=== PATIENT | female | born 1935 | race Caucasian/White ===

== ENCOUNTER 2023-12-28 13:20 | Emergency (ER) | payer MEDICARE, SELFPAY ==
[2023-12-28 13:24] VITALS: BP 240/116
[2023-12-28 13:48] VITALS: BP 170/93
[2023-12-28 13:57] VITALS: BMI 34.8
[2023-12-28 14:00] VITALS: BP 180/85
--- NOTE | 2023-12-28 14:38 | ED.GENMED ---
History of Present Illness
General
Chief Complaint: Blood Pressure Problem
Source: patient
Exam Limitations: none
Time Seen by Provider: 12/28/23 14:31
Nursing documentation reviewed up to this point in time: agreed with
Travel History
Have you had any contact with someone who has COVID-19?: No
Do you have any symptoms of coronavirus? Fever > 100 degrees, chills, cough, shortness of breath, sore throat, loss of taste or smell, muscle aches, or headache?: No
History of Present Illness
History of Present Illness:
88-year-old female with history of glaucoma, edema on Lasix 20 mg daily, COPD presents stating her ankles and feet were swollen a little for the past 2 days so last night she decided to take her blood pressure and it was 208/103. She has a list of
her blood pressure readings since then, she is taking it 13 times and it has ranged from 141/95 through the 150s to 160s to 170s systolic and up to today to 208/103 at one point. Denies chest pain or trouble breathing. Denies change in vision.
Denies headache. Denies weakness or numbness in her extremities. She states 'I was just worried and wanted to get checked, has never been that high.'
Past History
Past History
ED Past Medical History: HTN and Other (gall stones, kidney stones, glaucoma)
ED Past Surgical History: Appendectomy, Tonsilectomy and Other (hemorrhoidectomy, benign tumor excision from right cheek)
Social History
Tobacco: Non-smoker
Alcohol: None
Personal:
Living: alone
Review of Systems
Review of Systems
Allergies reviewed?: Yes
All Other Systems: ROS reviewed and negative except as documented in HPI and ROS
Constitutional: Denies fever or fatigue
Respiratory: Denies trouble breathing
Cardiac: Denies chest pain
ABD/GI: Denies abdominal pain, nausea, diarrhea, constipated or anorexia
: Denies dysuria, frequency, difficulty voiding or urgency
Musculoskeletal: Reports edema (feels her ankles and feet are 'a little swollen' was worse yesterday)
Skin: Reports no symptoms
Neurological: Reports no symptoms
Phy Exam
Physical Exam
Physical Exam:
GENERAL: No acute distress. A&Ox3.
CONSTITUTIONAL: Afebrile.
EYES: clear, conjunctivae normal
ENMT: moist mucus membranes, Pharynx nl
RESPIRATORY: Regular respirations, nonlabored, lungs clear.
CARDIOVASCULAR: Regular rate and rhythm, no murmurs, no rubs.
GI: Soft, nontender, normal BS
MUSCULOSKELETAL: Moves with ease. Well perfused. No edema noted
SKIN: Warm, dry, pink
PSYCH: Normal mood and affect. Well kept, interactive and appropriate
NEUROLOGIC: Awake, alert and oriented. No focal neurological deficits
Course
Orders/Labs/Results
Orders:
Orders
12/28/23 13:27
ECG [Electrocardiogram (*1)] Urgent
Reason for Study: Hypertension, Benign
12/28/23 13:28
EKG- Treatment ONCE
12/28/23 15:06
Complete Blood Count/With Diff Urgent
Comprehensive Metabolic Panel Urgent
NT-proBNP Urgent
Abnormal Lab Results
12/28/23
15:06
MCV 80.3 L fL
(81.0-99.0)
BUN 21 H mg/dl
(7-17)
12/28/23 15:06
12/28/23 15:06
Vital Signs
Initial and Last Documented VS:
Initial Vital Signs
Temp Pulse Resp BP Pulse Ox
98.1 F 76 18 240/116 100
12/28/23 13:24 12/28/23 13:24 12/28/23 13:24 12/28/23 13:24 12/28/23 13:24
Last Documented Vital Signs
Temp Pulse Resp BP Pulse Ox
98.1 F 70 16 170/93 97
12/28/23 13:24 12/28/23 13:48 12/28/23 13:48 12/28/23 13:48 12/28/23 15:19
MDM/Problems Addressed
Differential Diagnosis Includes:
hypertensive urgency
MDM/Problems Addressed:
88-year-old female with history of glaucoma, edema on Lasix 20 mg daily, COPD presents stating her ankles and feet were swollen a little for the past 2 days so last night she decided to take her blood pressure and it was 208/103. She has a list of
her blood pressure readings since then, she is taking it 13 times and it has ranged from 141/95 through the 150s to 160s to 170s systolic and up to today to 208/103 at one point. Denies chest pain or trouble breathing. Denies change in vision.
Denies headache. Denies weakness or numbness in her extremities. She states 'I was just worried and wanted to get checked, has never been that high.'
EKG: Sinus rhythm with PACs
3:49 p.m.
CBC: normal
CMP: No clinically significant abnormality
BP 170/97
Will start pt on low dose Amlodipine 2.5 mg daily and she will f/u with pcp next week.
*EKG
EKG Intrepretation Date: 12/28/23
Interpretation: normal
Rate: normal
Rhythm: sinus
[place]: normal axis
Interval: normal interval
QRS Pattern: normal QRS
Ischemia: no ischemia
*Critical Care Note
Total Time (30-74mins, 75-104mins- exclusive of procedures): Not Applicable
ED Attending Note
-
Portions of this chart may have been created with voice recognition software.� Occasional wrong word or��sound alike� substitutions may have occurred due to the inherent limitations of voice recognition software.
Discharge Plan
Departure
Patient Disposition: Home (Routine Discharge)
Date of Disposition: 12/28/23
Time of Disposition: 15:56
Patient with high blood pressure during this ER visit?: Yes
Condition: Good
Discharge Problem:
Hypertension
Instructions: High Blood Pressure (DC)
Prescriptions:
New
amlodipine 2.5 mg tablet
2.5 mg PO DAILY Qty: 30 0RF
No Action
furosemide [Lasix] 20 mg Tablet
20 mg PO DAILY
Referrals:
Rebecca Donahue MD [Family Provider] - Call in 1-3 days for appt
Activity Restrictions/Additional Instructions:
As we discussed your lab work is normal.
I sent a prescription to your pharmacy for blood pressure medication Amlodipine 2.5 mg daily.
See your doctor next week for BP check
Interventions
Interventions:
*Risk Screen - Suicide Last Done: 12/28/23 13:24
*General Assessment Last Done: 12/28/23 13:24
*Neglect/Abuse Screening Last Done: 12/28/23 13:24
ED- Fall Risk Assessment Last Done: 12/28/23 13:48
*ED COVID-19 Vaccine History Last Done: 12/28/23 13:48
ED- Cardiac Assessment Last Done: 12/28/23 15:20
ED- Neurological Assessment Last Done: 12/28/23 15:18
ED- Pulmonary Assessment Last Done: 12/28/23 15:19
Discharge Date and Time
Print Language: GREEK
[2023-12-28 15:00] VITALS: BP 170/97
[2023-12-28 15:19] LABS: % Basophils 0.4 % (0-2); % Eosinophils 2.4 % (0-6); % Immature Granulocytes 0.3 % (0-0.5); % Lymphocytes 21.7 % (20.5-51.1); % Monocytes 9.1 % (1.7-9.3); % Neutrophils 66.1 % (42.2-75.2); Absolute Eosinophils 0.2 10^3/uL (0-0.7); Absolute Lymphocytes 1.5 10^3/uL (1.2-3.4); Absolute Monocytes 0.6 10^3/uL (0.1-0.6); Absolute Neutrophils 4.5 10^3/uL (1.4-6.5); Hematocrit 41.7 % (37.0-47.0); Mean Corp Hgb Conc. 33.6 g/dL (33.0-37.0); Mean Corpuscular Volume 80.3 fL (81.0-99.0); Mean Platelet Volume 10.1 fL (7.4-10.4); Nucleated Red Blood Cells % 0 %; Platelet Count 206 10^3/uL (130-400); Red Blood Cell Count 5.19 10^6/uL (4.20-5.40); Red Cell Dist. Width 13.5 % (11.5-14.5); White Blood Cell Count 6.7 10^3/uL (4.8-10.8)
[2023-12-28 15:26] LABS: ALT (SGPT) 21 U/L (0-35); AST (SGOT) 29 U/L (14-36); Alkaline Phosphatase 74 U/L (38-126); Blood Urea Nitrogen 21 mg/dl (7-17); Calcium 9.6 mg/dl (8.4-10.2); Carbon Dioxide 27 mmol/L (22-30); Chloride 107 mmol/L (98-107); Estimated Creatinine Clearance 61 ml/min; Glucose 97 mg/dl (70-99); Potassium 3.9 mmol/L (3.5-5.1); Sodium 140 mmol/L (135-145); Total Bilirubin 0.8 mg/dl (0.2-1.3); Total Protein 6.5 g/dl (6.3-8.2); eGFR > 60.00
[2023-12-28 15:34] LABS: NT-proBNP 257 pg/ml
[2023-12-28 16:00] VITALS: BP 193/75
[2023-12-28 16:34] VITALS: BP 193/75
== END 2023-12-28 16:35 | disposition home or self-care (01) ==
LOC: EMR 13:20
PROVIDERS: Registered Nurse; EMERGENCY PHYSICIAN Student in an Organized Health Care Education/Training Program; FAMILY PHYSICIAN Emergency Medicine
DX: I10 Essential (primary) hypertension (principal); J44.9 Chronic obstructive pulmonary disease, unspecified; Z79.899 Other long term (current) drug therapy; Z87.442 Personal history of urinary calculi; Z90.49 Acquired absence of other specified parts of digestive tract
CPT/HCPCS: 99283; 80053; 83880; 85025; 93005

== ENCOUNTER → 2024-03-17 16:17 | Outpatient (REF) | payer MEDICARE, SELFPAY | LOC: RCS 16:17 | PROVIDERS: ATTENDING PHYSICIAN Internal Medicine Cardiovascular Disease; FAMILY PHYSICIAN Emergency Medicine | DX: I35.1 Nonrheumatic aortic (valve) insufficiency (principal) | CPT/HCPCS: 93306 ==

== ENCOUNTER 2024-06-17 12:06 | Emergency (ER) | payer MEDICARE, SELFPAY ==
[2024-06-17 12:09] VITALS: BP 125/73
[2024-06-17 12:27] VITALS: BP 110/65; BP 112/69; BP 117/72; PULSE 59; PULSE 64; PULSE 66
--- NOTE | 2024-06-17 12:28 | ED.GENMED ---
History of Present Illness
General
Chief Complaint: Blood Pressure Problem
Time Seen by Provider: 06/17/24 12:28
History of Present Illness
History of Present Illness:
TIME OF INITIAL ENCOUNTER: 12:30 PM
HPI: The patient came in here due to concerns for blood pressure readings as high as the 180s systolic at home. She does not necessarily have any new symptoms. She has had some intermittent vertigo which she has had for decades. The
dizziness/vertigo is not new. She never had any chest pain or shortness of breath. She was seen here with high blood pressure readings in December 2023 and was placed on amlodipine 2.5 mg each morning and blood pressure readings had been doing well
until yesterday.
EXAM: GENERAL: Well appearing in no distress high blood pressure, chronic vertigo
HEENT: Moist oral mucosa
CARDIOVASCULAR: No murmurs, normal heart rate, regular rhythm, No chest wall tenderness
PULMONARY: No respiratory distress, breath sounds are clear and equal
ABDOMEN: Soft with no peritoneal signs, no tenderness
NEUROLOGIC: Excellent strength all extremities, no coordination deficits
PSYCHIATRIC: Appropriate mental status, normal insight and judgement
EXTREMITIES: Nontender, no edema, moves all extremities equally
SKIN: No rash, no lesions
NUMBER AND COMPLEXITY OF PROBLEMS ADDRESSED AT THE ENCOUNTER
� Chronic conditions affecting care: High blood pressure, chronic vertigo
� Acute Exacerbation and/or Progression of Chronic Illness: This is an acute but recurring problem
� Differential Diagnosis includes: Labile hypertension, medication noncompliance, hypertensive urgency, poorly controlled blood pressure
AMOUNT AND/OR COMPLEXITY OF DATA TO BE REVIEWED AND ANALYZED
� I performed an independent evaluation of and my interpretation is:
EKG:
CT:
X-rays:
Laboratory Studies:
Other:
� Review of other/old records: I reviewed records, the patient was seen here in the emergency department 12/28/2023 and at that time her blood pressure was 208/103�at that time she was placed on amlodipine 2.5 mg daily.
� Clinical information was obtained by an independent historian: None needed
� Prescriptions/Medications Considered but not given:
� Further testing considered but not performed: Considered blood work however the patient has no new symptoms and I reviewed the blood work from 6 months ago which was unremarkable
RISK OF COMPLICATIONS AND/OR MORBIDITY OR MORTALITY OF PATIENT MANAGEMENT
� Social determinants of health affecting care: Lives at home
� Discussion with other providers:
� Escalation of care including admission/observation vs risk of discharge considered: The patient took 2.5 mg of amlodipine yesterday morning but blood pressure readings then were in the 180s range and she took an additional 2.5
mg of amlodipine last evening. She took 2.5 mg of amlodipine as she usually does this morning but then took another dose and currently has systolics in the 110-140 range in the emergency department. Considered increasing the amlodipine dosing
however I reviewed her notes and very recently her blood pressure readings were in the low 100s. Therefore, I recommend not making any changes but I did tell her that she could take an additional amlodipine as she had recently if her systolic blood
pressures are above 150. I also informed her that maximum amlodipine dosing for a 24-hour period would be 10 mg.
ANY OTHER UPDATES:
Past History
Past History
ED Past Medical History: HTN and Other (gall stones, kidney stones, glaucoma)
ED Past Surgical History: Appendectomy, Tonsilectomy and Other (hemorrhoidectomy, benign tumor excision from right cheek)
Social History
Tobacco: Non-smoker
Alcohol: None
Personal:
Living: alone
Phy Exam
Physical Exam
Physical Exam:
See HPI
Course
Vital Signs
Initial and Last Documented VS:
Initial Vital Signs
Temp Pulse Resp BP Pulse Ox
98.4 F 63 18 125/73 98
06/17/24 12:09 06/17/24 12:09 06/17/24 12:09 06/17/24 12:09 06/17/24 12:09
Last Documented Vital Signs
Temp Pulse Resp BP Pulse Ox
98.4 F 63 18 125/73 98
06/17/24 12:09 06/17/24 12:09 06/17/24 12:09 06/17/24 12:09 06/17/24 12:09
*Critical Care Note
Total Time (30-74mins, 75-104mins- exclusive of procedures): Not Applicable
ED Attending Note
-
Portions of this chart may have been created with voice recognition software.� Occasional wrong word or��sound alike� substitutions may have occurred due to the inherent limitations of voice recognition software.
Discharge Plan
Departure
Patient Disposition: Home (Routine Discharge)
Date of Disposition: 06/17/24
Time of Disposition: 12:41
Patient with high blood pressure during this ER visit?: Yes
Discharge Problem:
High blood pressure
Instructions: High Blood Pressure (DC), BLOOD PRESSURE
Prescriptions:
No Action
amlodipine 2.5 mg tablet
2.5 mg PO DAILY Qty: 30 0RF
furosemide [Lasix] 20 mg Tablet
20 mg PO DAILY
Activity Restrictions/Additional Instructions:
I reviewed your old records including your blood work from earlier this year. Your blood pressures here have ranged from 110 to 140. I also reviewed your notes that you have taken. Since your blood pressures have been a little on the lower side
in the mornings, I do not recommend increasing the dose yet but I think it would be reasonable to take an additional 2.5 mg later in the daytime if your blood pressure readings are above 150. Follow-up your primary care doctor. Return here if
worse or any other concerns.
Interventions
Interventions:
*Risk Screen - Suicide Last Done: 06/17/24 12:09
*General Assessment Last Done: 06/17/24 12:09
*Neglect/Abuse Screening Last Done: 06/17/24 12:09
ED- Fall Risk Assessment Last Done: 06/17/24 12:44
*ED COVID-19 Vaccine History Last Done: 06/17/24 12:44
ED- Cardiac Assessment Last Done: 06/17/24 12:44
ED- Neurological Assessment Last Done: 06/17/24 12:44
ED- Pulmonary Assessment Last Done: 06/17/24 12:44
Discharge Date and Time
Print Language: MALAWIAN
== END 2024-06-17 13:10 | disposition home or self-care (01) ==
LOC: EMR 12:06
PROVIDERS: EMERGENCY PHYSICIAN Emergency Medicine; FAMILY PHYSICIAN Emergency Medicine
DX: I10 Essential (primary) hypertension (principal); Z79.899 Other long term (current) drug therapy
CPT/HCPCS: 99282

== ENCOUNTER → 2024-07-01 20:18 | Outpatient (REF) | payer MEDICARE, SELFPAY | LOC: MRI 20:18 | PROVIDERS: ATTENDING PHYSICIAN Emergency Medicine | DX: R42 Dizziness and giddiness (principal); R26.89 Other abnormalities of gait and mobility; R26.81 Unsteadiness on feet | CPT/HCPCS: 70553; A9575 ==

== ENCOUNTER → 2024-07-17 17:04 | Outpatient (REF) | payer MEDICARE, SELFPAY | LOC: PAVMRI 17:04 | PROVIDERS: ATTENDING PHYSICIAN Emergency Medicine | DX: R42 Dizziness and giddiness (principal); R26.89 Other abnormalities of gait and mobility; R26.81 Unsteadiness on feet | CPT/HCPCS: 70544; 70547 ==

== ENCOUNTER → 2024-10-24 10:38 | Outpatient (REF) | payer MEDICARE, SELFPAY ==
[2024-10-24 11:33] LABS: ALT (SGPT) 21 U/L (0-35); AST (SGOT) 25 U/L (14-36); Albumin 4.3 g/dl (3.5-5.0); Alkaline Phosphatase 76 U/L (38-126); Blood Urea Nitrogen 22 mg/dl (7-17); Calcium 9.9 mg/dl (8.4-10.2); Carbon Dioxide 29 mmol/L (22-30); Chloride 105 mmol/L (98-107); Glucose 111 mg/dl (70-99); HDL Cholesterol 76 mg/dl; LDL Cholesterol, Calculated 111 mg/dl; Potassium 4.3 mmol/L (3.5-5.1); Sodium 141 mmol/L (135-145); Total Bilirubin 0.9 mg/dl (0.2-1.3); Total Cholesterol 204 mg/dl (50-199); Total Protein 6.7 g/dl (6.3-8.2); Triglyceride 88 mg/dl (10-149); Very Low Density Lipoprotein 17 mg/dl (0-30); eGFR > 60.00
[2024-10-24 14:01] LABS: Glycohemoglobin (HgbA1c) 5.4 % (4.0-5.6)
== END ==
LOC: REG 10:38
PROVIDERS: ATTENDING PHYSICIAN Emergency Medicine
DX: R73.03 Prediabetes (principal); E78.00 Pure hypercholesterolemia, unspecified
CPT/HCPCS: 36415; 80053; 80061; 83036

== ENCOUNTER → 2025-03-22 16:04 | Outpatient (REF) | payer MEDICARE, SELFPAY | LOC: HWRAD 16:04 | PROVIDERS: ATTENDING PHYSICIAN Nurse Practitioner Family | DX: M25.562 Pain in left knee (principal) | CPT/HCPCS: 73564 ==